=== PATIENT | male | born 1990 | race Hispanic/Latino ===

== ENCOUNTER 2020-03-06 09:03 | Emergency (ER) | payer OTHER ==
[~2020-03-06] VITALS: Ht 180.3 cm; Wt 99.0 kg
[2020-03-06 09:03] VITALS: BP 112/72
[2020-03-06] MEDS ORDERED: AUGM875T28 PO (10:03)
== END 2020-03-06 10:05 | disposition home or self-care (01) ==
LOC: M ED 09:03
DX: H66.001 Acute suppurative otitis media without spontaneous rupture of ear drum, right ear (principal)